=== PATIENT | male | born 1990 | race Caucasian/White ===

== ENCOUNTER → 2017-07-28 | Outpatient (CLI) | payer BC ==
[~2017-07-28] MED LIST: AUGMENTIN 875875 MG PO; BACTRIM DS 8001 TA1 PO; FLONASE 0.05% 121 EA NAS; KEFLEX500 MG PO; PREDNISONE20 MG PO; TOBRADEX 0.1%-0.5 ML OPH
== END | disposition home or self-care (01) ==
LOC: RAD 16:12
DX: M54.5 Low back pain (principal)

== ENCOUNTER 2020-04-23 11:40 | Emergency (ER) | payer SELFPAY ==
[~2020-04-23] VITALS: Wt 112.0 kg
[2020-04-23 11:46] VITALS: BP 152/92
== END 2020-04-23 14:44 | disposition home or self-care (01) ==
LOC: ED 11:40
DX: M79.671 Pain in right foot (principal); Z79.899 Other long term (current) drug therapy

== ENCOUNTER → 2022-12-09 | Outpatient (CLI) | payer BC ==
[2022-12-09 11:11] LABS: HEMATOCRIT 49.8 % (42.0-52.0); MEAN CELL VOLUME 86.6 fl (80.0-94.0); MEAN CORPUSCULAR HGB 29.7 pg (27.0-31.0); MEAN CORPUSCULAR HGB CONC 34.3 g/dl (33.0-37.0); MEAN PLATELET VOLUME 10.5 fl (9.6-12.3); RED BLOOD COUNT 5.75 10*6/uL (4.50-5.90); RED CELL DISTRI WIDTH 11.9 % (0-14.5); WHITE BLOOD COUNT 7.3 10*3/uL (4.8-10.8)
[2022-12-09 11:27] LABS: ALKALINE PHOSPHATASE 61 U/L (46-116); BUN 10 mg/dl (9-23); CHLORIDE 102 mmol/L (98-107); CHOLESTEROL 203 mg/dL (<200); LDL CHOLESTEROL 131 mg/dL (9-159); POTASSIUM 4.1 mmol/L (3.4-5.1); SGPT/ALT 47 U/L (10-49); TOTAL PROTEIN 7.5 gm/dL (6.0-8.0); TRIGLYCERIDES 119 mg/dl (<150)
== END | disposition home or self-care (01) ==
LOC: LAB 10:39
PROVIDERS: ATTEND Family Medicine
DX: Z00.00 Encounter for general adult medical examination without abnormal findings (principal)

== ENCOUNTER → 2023-01-09 | Outpatient (CLI) | payer BC | END | disposition home or self-care (01) | LOC: LAB 16:42 | PROVIDERS: ATTEND Family Medicine | DX: M79.10 Myalgia, unspecified site (principal); M25.50 Pain in unspecified joint ==

== ENCOUNTER → 2023-01-23 | Outpatient (CLI) | payer BC ==
[2023-01-27 08:07] LABS: CORN, IGE <0.10 kU/L (Class 0); MILK (COW), IGE <0.10 kU/L (Class 0); PEANUT, IGE <0.10 kU/L (Class 0); SOYBEAN, IGE <0.10 kU/L (Class 0); WHEAT, IGE <0.10 kU/L (Class 0)
[2023-01-28 00:06] LABS: ALTERNARIA ALTERNATA, IGE <0.10 kU/L (Class 0); AMERICAN ELM, IGE <0.10 kU/L (Class 0); ASPERGILLUS FUMIGATU, IGE <0.10 kU/L (Class 0); BERMUDA GRASS, IGE <0.10 kU/L (Class 0); BIRCH, COMMON SILVER IGE <0.10 kU/L (Class 0); CLADOSPORIUM HERBARU, IGE <0.10 kU/L (Class 0); D FARINAE MITE <0.10 kU/L (Class 0); D PTERONYSSINUS <0.10 kU/L (Class 0); DOG DANDER, IGE <0.10 kU/L (Class 0); MAPLE LEAF SYCAMORE, IGE <0.10 kU/L (Class 0); MAPLE/BOX ELDER, IGE <0.10 kU/L (Class 0); MOUSE URINE IGE <0.10 kU/L (Class 0); PENICILLIUM CHRYSOGENUM, IGE <0.10 kU/L (Class 0); ROUGH PIGWEED, IGE <0.10 kU/L (Class 0); SHEEP SORREL (DOCK), IGE <0.10 kU/L (Class 0); SHORT RAGWEED, IGE <0.10 kU/L (Class 0); TIMOTHY, IGE <0.10 kU/L (Class 0); WALNUT TREE, IGE <0.10 kU/L (Class 0); WHITE ASH, IGE <0.10 kU/L (Class 0); WHITE MULBERRY, IGE <0.10 kU/L (Class 0); WHITE OAK, IGE <0.10 kU/L (Class 0)
== END | disposition home or self-care (01) ==
LOC: LAB 16:43
PROVIDERS: ATTEND Family Medicine
DX: J02.9 Acute pharyngitis, unspecified (principal); J34.9 Unspecified disorder of nose and nasal sinuses

== ENCOUNTER → 2023-02-16 | Outpatient (CLI) | payer BC ==
[2023-02-17 12:07] LABS: SJOGREN ANTI-SS-A <0.2 AI (0.0-0.9); SJOREN AB, ANTI-SS-B <0.2 AI (0.0-0.9)
== END | disposition home or self-care (01) ==
LOC: LAB 10:43
PROVIDERS: ATTEND Family Medicine
DX: I10 Essential (primary) hypertension (principal); H04.129 Dry eye syndrome of unspecified lacrimal gland

== ENCOUNTER → 2023-02-27 | Outpatient (CLI) | payer BC | END | disposition home or self-care (01) | LOC: CT 16:32 | PROVIDERS: ATTEND Specialist | DX: J34.2 Deviated nasal septum (principal); R59.0 Localized enlarged lymph nodes ==

== ENCOUNTER 2023-04-19 16:51 | Emergency (ER) | payer BC ==
[~2023-04-19] VITALS: Ht 187.9 cm; Wt 113.4 kg
[2023-04-19 18:08] LABS: BASO % 0.5 % (0.0-1.0); EOS # 0.1 10*3/uL (0.0-0.4); EOS % 1.4 % (1.0-4.0); HEMATOCRIT 44.3 % (42.0-52.0); LYMPH # 1.6 10*3/uL (1.3-4.4); LYMPH % 18.1 % (27.0-41.0); MEAN CELL VOLUME 86.7 fl (80.0-94.0); MEAN CORPUSCULAR HGB 30.7 pg (27.0-31.0); MEAN CORPUSCULAR HGB CONC 35.4 g/dl (33.0-37.0); MEAN PLATELET VOLUME 10.5 fl (9.6-12.3); MONO # 0.6 10*3/uL (0.1-1.0); NEUT # 6.4 10*3/uL (2.3-7.9); NEUT % 72.7 % (47.0-73.0); PLATELET COUNT AUTOMATED 251 10*3/uL (130-400); RED BLOOD COUNT 5.11 10*6/uL (4.50-5.90); RED CELL DISTRI WIDTH 11.9 % (0-14.5); WHITE BLOOD COUNT 8.7 10*3/uL (4.8-10.8)
[2023-04-19 18:32] LABS: ALKALINE PHOSPHATASE 61 U/L (46-116); BUN 10 mg/dl (9-23); CHLORIDE 102 mmol/L (98-107); SGPT/ALT 48 U/L (10-49); TOTAL PROTEIN 6.8 gm/dL (6.0-8.0)
[2023-04-19 19:12] VITALS: BP 148/86
== END 2023-04-19 19:13 | disposition home or self-care (01) ==
LOC: ED 16:51
PROVIDERS: Internal Medicine
DX: G52.2 Disorders of vagus nerve (principal); I10 Essential (primary) hypertension; Z87.891 Personal history of nicotine dependence

== ENCOUNTER → 2023-07-08 | Outpatient (CLI) | payer BC | END | disposition home or self-care (01) | LOC: LAB 16:59 | PROVIDERS: ATTEND Family Medicine | DX: N52.9 Male erectile dysfunction, unspecified (principal) ==

== ENCOUNTER → 2023-10-01 | Outpatient (CLI) | payer BC ==
[2023-10-01 17:39] LABS: HEMATOCRIT 44.6 % (42.0-52.0); MEAN CELL VOLUME 86.1 fl (80.0-94.0); MEAN CORPUSCULAR HGB 30.3 pg (27.0-31.0); MEAN CORPUSCULAR HGB CONC 35.2 g/dl (33.0-37.0); MEAN PLATELET VOLUME 10.1 fl (9.6-12.3); RED BLOOD COUNT 5.18 10*6/uL (4.50-5.90); RED CELL DISTRI WIDTH 11.7 % (0-14.5); WHITE BLOOD COUNT 7.4 10*3/uL (4.8-10.8)
[2023-10-01 18:01] LABS: ALKALINE PHOSPHATASE 60 U/L (46-116); BUN 9 mg/dl (9-23); CHLORIDE 102 mmol/L (98-107); POTASSIUM 3.8 mmol/L (3.4-5.1); SGPT/ALT 79 U/L (5-49); TOTAL PROTEIN 7.3 gm/dL (6.0-8.0)
[2023-10-04 21:06] LABS: TESTOSTERONE FREE, (DIRECT) 4.9 pg/mL (8.7-25.1)
== END | disposition home or self-care (01) ==
LOC: LAB 17:13
PROVIDERS: ATTEND Family Medicine
DX: I10 Essential (primary) hypertension (principal); E29.1 Testicular hypofunction

== ENCOUNTER → 2023-11-27 | Outpatient (CLI) | payer OTHER ==
[2023-11-27 11:42] LABS: HEMATOCRIT 45.6 % (42.0-52.0); MEAN CELL VOLUME 87.7 fl (80.0-94.0); MEAN CORPUSCULAR HGB 29.6 pg (27.0-31.0); MEAN CORPUSCULAR HGB CONC 33.8 g/dl (33.0-37.0); MEAN PLATELET VOLUME 10.6 fl (9.6-12.3); RED BLOOD COUNT 5.2 10*6/uL (4.50-5.90); RED CELL DISTRI WIDTH 12.1 % (0-14.5); WHITE BLOOD COUNT 7.4 10*3/uL (4.8-10.8)
[2023-11-27 12:13] LABS: ALKALINE PHOSPHATASE 51 U/L (46-116); BUN 12 mg/dl (9-23); CHLORIDE 103 mmol/L (98-107); CHOLESTEROL 191 mg/dL (<200); GAMMA GLUTAMYL TRANSPEPTIDASE 35 U/L (0-73); LDL CHOLESTEROL 121 mg/dL (9-159); SGPT/ALT 44 U/L (5-49); TOTAL PROTEIN 7.1 gm/dL (6.0-8.0); TRIGLYCERIDES 113 mg/dl (<150)
== END | disposition home or self-care (01) ==
LOC: US 03:41
PROVIDERS: ATTEND Family Medicine
DX: K82.9 Disease of gallbladder, unspecified (principal); E78.00 Pure hypercholesterolemia, unspecified; N40.0 Benign prostatic hyperplasia without lower urinary tract symptoms; I10 Essential (primary) hypertension; R74.8 Abnormal levels of other serum enzymes

== ENCOUNTER → 2024-02-25 | Outpatient (CLI) | payer OTHER | END | disposition home or self-care (01) | LOC: RAD 11:57 | PROVIDERS: ATTEND Family Medicine | DX: M41.84 Other forms of scoliosis, thoracic region (principal) ==

== ENCOUNTER → 2024-04-09 | Outpatient (CLI) | payer OTHER | LOC: US 08:21 | PROVIDERS: ATTEND Family Medicine | DX: R10.31 Right lower quadrant pain (principal) ==

== ENCOUNTER → 2024-08-03 | Outpatient (CLI) | payer OTHER | END | disposition home or self-care (01) | LOC: RAD 07:02 | PROVIDERS: ATTEND Chiropractor Orthopedic | DX: S23.3XXA Sprain of ligaments of thoracic spine, initial encounter (principal); X58.XXXA Exposure to other specified factors, initial encounter; Y93.89 Activity, other specified; Y92.89 Other specified places as the place of occurrence of the external cause; Y99.8 Other external cause status ==

== ENCOUNTER → 2024-10-14 | Outpatient (CLI) | payer OTHER | END | disposition home or self-care (01) | LOC: CARD 02:51 | PROVIDERS: ATTEND Family Medicine | DX: I51.7 Cardiomegaly (principal); R00.2 Palpitations ==

== ENCOUNTER → 2024-10-21 | Outpatient (CLI) | payer OTHER ==
[2024-10-21 15:51] LABS: HEMATOCRIT 45.3 % (42.0-52.0); MEAN CELL VOLUME 87.6 fl (80.0-94.0); MEAN CORPUSCULAR HGB 30.2 pg (27.0-31.0); MEAN CORPUSCULAR HGB CONC 34.4 g/dl (33.0-37.0); MEAN PLATELET VOLUME 10.3 fl (9.6-12.3); RED BLOOD COUNT 5.17 10*6/uL (4.50-5.90); WHITE BLOOD COUNT 7.5 10*3/uL (4.8-10.8)
[2024-10-21 16:19] LABS: VITAMIN D, 25-HYDROXY 38.9 ng/mL (30-100)
[2024-10-21 16:32] LABS: ALKALINE PHOSPHATASE 56 U/L (46-116); BUN 18 mg/dl (9-23); CHLORIDE 103 mmol/L (98-107); CPK 88 U/L (34-171); SGPT/ALT 33 U/L (5-49); TOTAL PROTEIN 7.2 gm/dL (6.0-8.0)
[2024-10-25 11:07] LABS: TESTOS, FREE 3.4 pg/mL (8.7-25.1)
== END | disposition home or self-care (01) ==
LOC: LAB 15:24
PROVIDERS: ATTEND Family Medicine
DX: E55.9 Vitamin D deficiency, unspecified (principal); R23.3 Spontaneous ecchymoses; T56.891A Toxic effect of other metals, accidental (unintentional), initial encounter; M79.10 Myalgia, unspecified site; M54.50 Low back pain, unspecified; E29.1 Testicular hypofunction

== ENCOUNTER → 2025-04-05 | Outpatient (CLI) | payer OTHER ==
[2025-04-05 16:46] LABS: HEMATOCRIT 44.2 % (42.0-52.0); MEAN CELL VOLUME 85.7 fl (80.0-94.0); MEAN CORPUSCULAR HGB 29.7 pg (27.0-31.0); MEAN CORPUSCULAR HGB CONC 34.6 g/dl (33.0-37.0); MEAN PLATELET VOLUME 10.4 fl (9.6-12.3); RED BLOOD COUNT 5.16 10*6/uL (4.50-5.90); RED CELL DISTRI WIDTH 11.8 % (0-14.5); WHITE BLOOD COUNT 6.8 10*3/uL (4.8-10.8)
[2025-04-05 17:15] LABS: ALKALINE PHOSPHATASE 52 U/L (46-116); BUN 14 mg/dl (9-23); CHLORIDE 102 mmol/L (98-107); CHOLESTEROL 177 mg/dL (<200); LDL CHOLESTEROL 113 mg/dL (9-159); POTASSIUM 3.9 mmol/L (3.4-5.1); SGPT/ALT 43 U/L (5-49); TOTAL PROTEIN 7.2 gm/dL (6.0-8.0); TRIGLYCERIDES 111 mg/dl (<150)
[2025-04-05 17:16] LABS: VITAMIN D, 25-HYDROXY 39.7 ng/mL (30-100)
== END | disposition home or self-care (01) ==
LOC: LAB 15:49
PROVIDERS: ATTEND Family Medicine
DX: I10 Essential (primary) hypertension (principal); E78.00 Pure hypercholesterolemia, unspecified; E55.9 Vitamin D deficiency, unspecified; R53.83 Other fatigue